=== PATIENT | male | born 1955 | race Caucasian/White ===

== ENCOUNTER → 2019-12-27 | Outpatient (CLI) | payer MEDICARE ==
[~2019-12-27] MED LIST: ALBU90OI INH; ALBU90OI6 INH; FLUSAL5005 INH; Ibuprofen Ib200 MG PO; MARIJUANA; METPRE4DP PO; Prednisone20 MG PO
== END | disposition home or self-care (01) ==
LOC: LAB SHORT 15:10 → LAB 15:10
DX: R30.9 Painful micturition, unspecified (principal)
CPT/HCPCS: 87077; 87086; 87186

== ENCOUNTER → 2022-09-23 | Outpatient (CLI) | payer MEDICARE | LOC: LAB 12:24 → LAB SHORT 12:24 | DX: N39.0 Urinary tract infection, site not specified (principal) | CPT/HCPCS: 87077; 87086; 87186 ==

== ENCOUNTER → 2022-10-03 | Outpatient (CLI) | payer MEDICARE ==
[2022-10-03 13:13] LABS: Source, Urine Clean Catch
[2022-10-03 17:28] LABS: Appearance, Urine Clear (Clear); Bilirubin, Urine Neg (Neg); Blood, Urine Neg (Neg); Color, Urine Yellow (P-Yellow); Glucose Qualitative, Urine Neg (Neg); Ketones, Urine Neg (Neg); Leukocyte Esterase, Urine Neg (Neg); Nitrite, Urine Neg (Neg); Protein, Urine Neg (Neg); Urobilinogen, Urine NORM (Normal)
== END ==
LOC: LAB 13:10 → LAB SHORT 13:10
PROVIDERS: Nurse Practitioner Family
DX: N39.0 Urinary tract infection, site not specified (principal)
CPT/HCPCS: 81003